=== PATIENT | female | born 1975 | race Caucasian/White ===

== ENCOUNTER 2017-05-19 21:25 | Emergency (ER) | payer SELFPAY ==
[2017-05-19 22:01] VITALS: BP 180/107; PULSE 111; RESP 18; TEMP 97.8; O2SAT 100
[2017-05-19] MEDS ORDERED: CELE10TA PO (22:09)
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
[2017-05-19] MEDS ORDERED: IBUPROFEN 600 MG TAB PO ONE (23:00)
[2017-05-19 23:13] VITALS: BP 162/92
[2017-05-19] MEDS ORDERED: LORazepam 1 MG TAB PO ONE (23:15)
== END 2017-05-19 23:21 | disposition home or self-care (01) ==
LOC: NEPD 21:25
DX: S00.83XA Contusion of other part of head, initial encounter (principal); M54.2 Cervicalgia; R68.84 Jaw pain; Y04.0XXA Assault by unarmed brawl or fight, initial encounter; F90.9 Attention-deficit hyperactivity disorder, unspecified type; F41.9 Anxiety disorder, unspecified; F32.9 Major depressive disorder, single episode, unspecified
CPT/HCPCS: 70450; 70486; 72125; 99285